=== PATIENT | male | born 1985 | race Caucasian/White ===

== ENCOUNTER 2017-01-10 21:29 | Observation (INO) | payer BC ==
[~2017-01-10] VITALS: Ht 182.9 cm; Wt 95.3 kg
[2017-01-10 22:59] LABS: HEMATOCRIT 43.5 % (38.0-50.0); MCH 30.1 PG (29.0-34.0); MCHC 34.3 G/DL (30.0-36.0); MCV 87.9 FL (86-99); MEAN PLAT.VOLUME 9.7 uM^3 (9.0-12.4); PLATELET COUNT 265 K/uL (156-360); RBC DIS.WIDTH-CV 11.9 % (11.8-14.6); RBC DIS.WIDTH-SD 38.4 % (39-53); RED BLOOD COUNT 4.95 M/uL (4.00-5.50); WHITE BLOOD COUNT 8.5 K/uL (4.1-10.2)
[2017-01-10 23:12] LABS: D-DIMER ELISA 0.16 mg/L FEU (< 0.57)
[2017-01-10 23:18] LABS: CHLORIDE 107 mEq/L (99-109); POTASSIUM 3.8 mEq/L (3.7-5.4); SODIUM 143 mEq/L (136-147)
[2017-01-10 23:19] LABS: GLUCOSE 93 mg/dL (70-99)
[2017-01-10 23:21] LABS: ANION GAP 10 MEQ/L (2-14); TROP-I INTERPRETATION NEGATIVE; TROPONIN-I < 0.01 ng/mL (0.0-0.30)
[2017-01-10 23:23] LABS: GFR ESTIMATE (CALCULATED) > 59 mL/min/
[2017-01-10 23:24] LABS: UREA NITROGEN (BUN) 17 mg/dL (9-23)
[2017-01-11 05:09] VITALS: BP 108/56
[2017-01-11 07:55] VITALS: BP 90/52
== END 2017-01-11 09:52 | disposition home or self-care (01) ==
LOC: EME 21:29 → EDOF 01-11 03:50 → 5WEST 01-11 04:33
PROVIDERS: Physician Assistant
DX: G43.109 Migraine with aura, not intractable, without status migrainosus (principal); R00.1 Bradycardia, unspecified; I95.9 Hypotension, unspecified
CPT/HCPCS: 70450; 80048; 84484; 85027; 85379; 93005; 99281; 99285; G0378; J1885; J2405; J7030